=== PATIENT | male | born 1960 | race Hispanic/Latino ===

== ENCOUNTER → 2022-12-31 | Outpatient (CLI) | payer BC | END | disposition home or self-care (01) | LOC: RAH 14:56 | PROVIDERS: ATTEND Physical Medicine & Rehabilitation | DX: M48.062 Spinal stenosis, lumbar region with neurogenic claudication (principal); E08.49 Diabetes mellitus due to underlying condition with other diabetic neurological complication | CPT/HCPCS: 72110 ==

== ENCOUNTER → 2023-02-28 | Outpatient (CLI) | payer BC | END | disposition home or self-care (01) | LOC: RAH 12:50 | PROVIDERS: ATTEND Physical Medicine & Rehabilitation | DX: M47.817 Spondylosis without myelopathy or radiculopathy, lumbosacral region (principal); M47.812 Spondylosis without myelopathy or radiculopathy, cervical region; M48.02 Spinal stenosis, cervical region; M48.061 Spinal stenosis, lumbar region without neurogenic claudication; M48.07 Spinal stenosis, lumbosacral region | CPT/HCPCS: 72141; 72148 ==

== ENCOUNTER → 2023-03-17 | Outpatient (CLI) | payer BC | END | disposition home or self-care (01) | LOC: RAH 14:05 | PROVIDERS: ATTEND Physical Medicine & Rehabilitation | DX: M48.04 Spinal stenosis, thoracic region (principal); M51.34 Other intervertebral disc degeneration, thoracic region | CPT/HCPCS: 72146 ==

== ENCOUNTER → 2023-06-16 | Outpatient (CLI) | payer BC | END | disposition home or self-care (01) | LOC: RAH 13:48 | PROVIDERS: ATTEND Physical Medicine & Rehabilitation | DX: M19.072 Primary osteoarthritis, left ankle and foot (principal); M25.572 Pain in left ankle and joints of left foot; M79.89 Other specified soft tissue disorders | CPT/HCPCS: 73610 ==

== ENCOUNTER → 2023-07-16 | Outpatient (CLI) | payer BC | END | disposition home or self-care (01) | LOC: RAH 14:17 | PROVIDERS: ATTEND Physician Assistant | DX: M19.072 Primary osteoarthritis, left ankle and foot (principal); M25.572 Pain in left ankle and joints of left foot; M79.89 Other specified soft tissue disorders | CPT/HCPCS: 73610 ==